=== PATIENT | female | born 1945 | race African-American/Black ===

== ENCOUNTER 2017-03-10 15:27 | Emergency (ER) | payer OTHER ==
[~2017-03-10] VITALS: Ht 152.4 cm; Wt 68.0 kg
[2017-03-10] MEDS ORDERED: SOD CHLORIDE 0.9% 1,000 ML IV STA ×2 (15:30→16:23)
[2017-03-10 15:31] VITALS: Ht 152.4 cm; Wt 68.0 kg
[2017-03-10 15:43] LABS: ADD SCAN DIFF NO
[2017-03-10 15:44] LABS: ABNORMAL IP MESSAGE 1; HEMATOCRIT 48.4 % (37.0-47.0); HEMOGLOBIN 16.4 g/dl (12.0-16.0); MEAN CORPUSCULAR HGB CONC 33.9 g/dl (32.0-37.0); MEAN CORPUSCULAR VOLUME 88.6 fl (82.0-101.0); MEAN PLATELET VOLUME 9.7 fl (7.4-10.4); PLATELET COUNT 266 10^3/UL (140-415); RED BLOOD COUNT 5.46 10^6/ul (4.20-5.40); RED CELL DISTRIBUTION WIDTH 13.1 % (11.5-14.5); WHITE BLOOD COUNT 12.6 10^3/ul (4.8-10.8)
[2017-03-10 15:59] LABS: INR 0.95; PROTIME 12.7 Sec (12.2-14.2)
[2017-03-10 16:00] LABS: PARTIAL THROMBOPLASTIN TIME 27.8 Sec (25.0-35.0)
[2017-03-10 16:01] LABS: LYMPHOCYTES # 0.3 10^3/ul (0.8-2.9); MONOCYTE # 0.6 10^3/ul (0.3-0.9); NEUTROPHIL # 11.7 10^3/ul (1.6-7.5)
[2017-03-10 16:02] LABS: ALBUMIN 5.2 g/dl (3.3-4.9); ALBUMIN/GLOBULIN RATIO 1.62; BILIRUBIN,INDIRECT 0.2 mg/dl (0-1.1); BILIRUBIN,TOTAL 0.2 mg/dl (0.2-1.3); CALCIUM 10.6 mg/dl (8.4-10.2); CREATININE 1.82 mg/dl (0.44-1.00); POTASSIUM 4.1 mmol/L (3.5-5.1); TOTAL PROTEIN 8.4 g/dl (6.1-8.1)
[2017-03-10 16:12] LABS: TROPONIN-I 0.103 ng/ml (0.00-0.12)
--- NOTE | 2017-03-10 16:16 | RADRPT ---
PROCEDURE: Chest x-ray CLINICAL INDICATION: Abdominal pain TECHNIQUE: Chest single view COMPARISON: None FINDINGS: There is mild cardiomegaly and an sclerotic aortic calcification. The pulmonary vessels are normal in caliber. The lungs are clear. The costophrenic angles are sharp. The visualized bony thorax is unremarkable. IMPRESSION: No acute cardiopulmonary disease. Mild cardiomegaly and atherosclerotic aortic calcification RPTAT: HH .Rosalio Ji MD, MD Date Time Electronically viewed and signed by .Rosalio Ji MD, MD on 03/10/2017 16:16 .W/
--- NOTE | 2017-03-10 16:36 | RADRPT ---
PROCEDURE: XR Hip. CLINICAL INDICATION: Left hip pain. TECHNIQUE: AP and frog-leg lateral views of the left hip were obtained. COMPARISON: None FINDINGS: No acute fracture or dislocations are seen. The osseous structures are well mineralized. The soft tissue structures are intact. IMPRESSION: Unremarkable left hip series. RPTAT: HPNM Physician Taina Date Time Electronically viewed and signed by Mil Sanchez Physician on 03/10/2017 16:36 /
[2017-03-10] MEDS ORDERED: LOSA25TA5 PO (16:49)
[2017-03-10] MEDS ORDERED: ERGO500037 PO (16:49)
[2017-03-10] MEDS ORDERED: RISP4TAB2 PO (16:50)
[2017-03-10] MEDS ORDERED: TEMA30CA PO (16:50)
[2017-03-10] MEDS ORDERED: ALEN70TA30 PO (16:50)
[2017-03-10] MEDS ORDERED: AMLO5TAB4 PO (16:52)
[2017-03-10] MEDS ORDERED: CHLO25TA14 PO (16:52)
[2017-03-10] MEDS ORDERED: ATEN-51 PO (16:53)
[2017-03-10] MEDS ORDERED: ATOR10TA65 PO (16:54)
[2017-03-10 17:29] LABS: ADD UMIC YES; UR ASCORBIC ACID NEGATIVE (NEGATIVE); UR BILIRUBIN (Dip) NEGATIVE (NEGATIVE); UR BLOOD (Dip) 3+ mg/dL (NEGATIVE); UR CLARITY CLOUDY (CLEAR); UR COLOR YELLOW (YELLOW); UR GLUCOSE (Dip) 2+ mg/dL (NEGATIVE); UR KETONES (Dip) TRACE mg/dL (NEGATIVE); UR LEUKOCYTE ESTERASE (Dip) 2+ Leu/ul (NEGATIVE); UR NITRITE (Dip) NEGATIVE (NEGATIVE); UR RBC 2 /HPF (0-5); UR SPECIFIC GRAVITY (Dip) 1.014 (1.003-1.030); UR SQUAMOUS EPITHELIAL CELL FEW /HPF (FEW); UR TOTAL PROTEIN (Dip) 1+ mg/dl (NEGATIVE); UR UROBILINOGEN (Dip) NEGATIVE (NEGATIVE)
--- NOTE | 2017-03-10 17:30 | RADRPT ---
PROCEDURE: CT Brain without contrast. CLINICAL INDICATION: Syncope complaint of left leg pain status post fall yesterday TECHNIQUE: A CT of the brain was performed on a GE [employer] 64-slice CT scanner utilizing axial imaging from the skull base through the vertex without IV contrast. Multiplanar reformatted images were made. Images were reviewed on a PACS workstation. The CTDIvol is 41.88 mGy and the DLP is 720 .23 mGycm. One of the following 3 dose reduction techniques were used: Automated exposure control; adjustment of the mA and/or kV according to patient size; or use of iterative reconstruction technique. COMPARISON: None FINDINGS: There is no intracranial hemorrhage, mass effect, or midline shift. No extra-axial fluid collection is seen. The ventricles and sulci are age appropriate. Mild diffuse volume loss is present. Confl uent decreased attenuation is present in the bilateral subcortical white matter, bilateral centrum s emiovale, and bilateral periventricular white matter compatible with mild chronic microvascular isch emic disease. Wedge-shaped decreased attenuation is present in the right frontal lobe extending to the right periventricular frontal white matter and involving the right basal ganglia compatible with a chronic right frontal lobe infarcts. Physiologic calcifications are noted of the bilateral basal ganglia. Moderate vascular calcifications are present of the bilateral intracranial internal carot id arteries and the tubal arteries. The visualized scalp and calvarium are normal. The bilateral orbits are normal. The bilateral para nasal sinuses, mastoid air cells, and middle ear cavities are clear. IMPRESSION: 1. No evidence of acute intracranial hemorrhage, infarcts, or acute intracranial pathology. 2. 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 3. Mild chronic microvascular ischemic disease and mild diffuse volume loss. 4. Moderate atherosclerotic vascular disease RPTAT: HDC .Gladys Perze MD, MD Date Time Electronically viewed and signed by .Gladys Perez MD, MD on 03/10/2017 17:30 .C/
[2017-03-10] MEDS ORDERED: CEFTRIAXONE 1 GM/50 ML (PMX) 50 ML IVPB ONE (18:00)
--- NOTE | 2017-03-10 19:13 | ERA ---
ER Documentation Chief Complaint Date/Time DATE: 03/10/17 TIME: 19:08 Chief Complaint syncope while in chair, c/o left leg pain s/p fall yesterday HPI This is a 71-year-old female who presents to the emergency room for evaluation after a possible syncopal episode at her house. The patient was complaining of left-sided leg pain and states that she did fall yesterday. The patient was able to give a detailed history secondary to her clinical condition, however EMS states that when they arrived in the patient's apartment was no air conditioning, and it was hot. He states that the patient was sitting in a chair and she had no loss of consciousness for EMS. ROS All systems reviewed and are negative except as per history of present illness. Medications Home Meds Reported Medications Atorvastatin Calcium (Atorvastatin Calcium) 10 Mg Tablet, 5 MG PO DAILY, #30 TAB 03/10/17 Atenolol* (Atenolol*) 25 Mg Tablet, 25 MG PO DAILY, #30 TAB 03/10/17 Amlodipine Besylate* (Norvasc*) 5 Mg Tablet, 5 MG PO DAILY, TAB 03/10/17 Chlorpromazine Hcl* (Chlorpromazine Hcl*) 25 Mg Tablet, 25 MG PO QHS, TAB TAKE 2-4 TABLETS QHS 03/10/17 Alendronate Sodium* (Fosamax*) 70 Mg Tablet, 70 MG PO Q7D, #4 TAB 03/10/17 Temazepam* (Temazepam*) 30 Mg Capsule, 30 MG PO HS Y for INSOMNIA, CAP 03/10/17 Risperidone* (Risperidone*) 4 Mg Tablet, 8 MG PO QHS, TAB 03/10/17 Losartan Potassium* (Losartan Potassium*) 25 Mg Tablet, 25 MG PO DAILY, TAB 03/10/17 Ergocalciferol (Vitamin D2) (VITAMIN D2) 50,000 Unit Capsule, 62273 UNIT PO MONTHLY, CAP 03/10/17 Allergies Allergies: Coded Allergies: No Known Allergy (Unverified , 03/10/17) PMhx/Soc Medical and Surgical Hx: pt denies Medical Hx History of Surgery: Yes (Ceserian section) Anesthesia Reaction: No Hx Neurological Disorder: No Hx Respiratory Disorders: No Hx Cardiac Disorders: Yes (HTN) Hx Psychiatric Problems: Yes (sleep[ing problems and states has "mental health " probs) Hx Miscellaneous Medical Probl: No Hx Alcohol Use: No Hx Tobacco Use: No Smoking Status: Never smoker Physical Exam Vitals Vital Signs Date Time Temp Pulse Resp B/P Pulse Ox O2 Delivery O2 Flow Rate FiO2 03/10/17 18:12 98.3 95 18 162/100 100 Nasal Cannula 2.0 03/10/17 16:00 94 20 126/92 100 Nasal Cannula 2.0 03/10/17 15:31 98.1 91 20 91/58 98 Physical Exam INITIAL VITAL SIGNS: Reviewed by me GENERAL: The patient is a frail-appearing elderly female HEENT: Severely dry mucous membranes, pupils equal, round, and reactive to light. EOMI. There is no scleral icterus. NECK: C-spine is soft and supple, there is no meningismus. There is no cervical lymphadenopathy. LUNGS: Clear to auscultation bilaterally. There are no rales, wheezes or rhonchi. HEART: Regular rate and rhythm, no murmurs, clicks, rubs or gallops. ABDOMEN: Soft, non-tender, non-distended. There are bowel sounds in all four quadrants. No rebound or guarding. EXTREMITIES: There is no peripheral cyanosis or edema. No focal swelling or erythema. NEUROLOGICAL: The patient moves all four extremities with 5/5 strength. Cranial nerves II - XII are intact. Normal gait. Alert and oriented SKIN: Superficial abrasion noted over the medial aspect of the left knee, there is no apparent rash or petechiae. HEME/LYMPHATIC: There is no evidence of excessive bruising or lymphedema. PSYCHIATRIC: The patient does not appear anxious or depressed. Result Diagram: 03/10/17 1530 03/10/17 1530 Results 24 hrs Laboratory Tests Test 03/10/17 15:30 03/10/17 15:32 03/10/17 17:10 03/10/17 18:00 White Blood Count 12.610^3/ul Red Blood Count 5.4610^6/ul Hemoglobin 16.4g/dl Hematocrit 48.4% Mean Corpuscular Volume 88.6fl Mean Corpuscular Hemoglobin 30.0pg Mean Corpuscular Hemoglobin Concent 33.9g/dl Red Cell Distribution Width 13.1% Platelet Count 92378^3/UL Mean Platelet Volume 9.7fl Neutrophils % 93.0% Lymphocytes % 2.0% Monocytes % 5.0% Neutrophils # 11.710^3/ul Lymphocytes # 0.310^3/ul Monocytes # 0.610^3/ul Prothrombin Time 12.7Sec Prothrombin Time Ratio 1.0 INR International Normalized Ratio 0.95 Activated Partial Thromboplast Time 27.8Sec Sodium Level 146mmol/L Potassium Level 4.1mmol/L Chloride Level 109mmol/L Carbon Dioxide Level 19mmol/L Anion Gap 22 Blood Urea Nitrogen 16mg/dl Creatinine 1.82mg/dl Glucose Level 140mg/dl Lactic Acid Level 7.2mmol/L 3.6mmol/L Calcium Level 10.6mg/dl Total Bilirubin 0.2mg/dl Direct Bilirubin 0.00mg/dl Indirect Bilirubin 0.2mg/dl Aspartate Amino Transf (AST/SGOT) 96IU/L Alanine Aminotransferase (ALT/SGPT) 43IU/L Alkaline Phosphatase 144IU/L Creatine Kinase 8842IU/L Troponin I 0.103ng/ml Total Protein 8.4g/dl Albumin 5.2g/dl Globulin 3.20g/dl Albumin/Globulin Ratio 1.62 Lipase 192U/L Bedside Glucose 126mg/dL Urine Color YELLOW Urine Clarity CLOUDY Urine pH 5.0 Urine Specific [place] 1.014 Urine Ketones TRACEmg/dL Urine Nitrite NEGATIVEmg/dL Urine Bilirubin NEGATIVEmg/dL Urine Urobilinogen NEGATIVEmg/dL Urine Leukocyte Esterase 2+Feliz/ul Urine Microscopic RBC 2/HPF Urine Microscopic WBC 5/HPF Urine Squamous Epithelial Cells FEW/HPF Urine Hemoglobin 3+mg/dL Urine Glucose 2+mg/dL Urine Total Protein 1+mg/dl Current Medications Medications (Trade) Dose Ordered Sig/Amari Route PRN Reason Start Time Stop Time Status Last Admin Dose Admin Sodium Chloride 1,000 ml @ 1,000 mls/hr Q1H STAT IV 03/10/17 15:30 03/10/17 16:29 DC 03/10/17 15:37 Sodium Chloride 1,000 ml @ 1,000 mls/hr Q1H STAT IV 03/10/17 16:23 03/10/17 17:22 DC 03/10/17 17:07 Ceftriaxone Sodium (Rocephin) 50 ml @ 100 mls/hr ONCE ONCE IVPB 03/10/17 18:00 03/10/17 18:29 DC 03/10/17 19:05 Procedures/MDM EKG: Rate/Rhythm: [Normal Sinus Rhythm] QRS, ST, T-waves: [No changes consistent w/ acute ischemia] Impression: [No evidence of ischemia or arrhythmia] X-ray Hip 2V Interpreted by me: Bones: No fracture Joints: No dislocation Foreign body: None Chest X-ray 1V Interpreted by me: Soft Tissue: No acute abnormalities Bones: No acute abnormalities Mediastinum/Cardiac Silhouette/Lungs: [No acute abnormalities] CT brain without: 1. No evidence of acute intracranial hemorrhage, infarcts, or acute intracranial pathology. 2. 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 3. Mild chronic microvascular ischemic disease and mild diffuse volume loss. 4. Moderate atherosclerotic vascular disease This 71-year-old female presents to the ER for evaluation of generalized weakness, possible syncopal episode. The patient was taken from her home which was found to be extremely hot according to EMS. When I evaluated this patient she was alert and oriented to person and place. The patient was found to have severely dry mucous membranes. Her original blood pressure was 93 over 50 1. We did obtain lab work and I gave this patient intravenous fluids. As this patient was being infused intravenous fluids the patient states she started to feel better. Lab work does reveal hemoconcentration, and CK level greater than 8800. This patient's original lactic acid was 7.2. A repeat lactic acid 2 hours after IV fluids was 3.6. She was found to have a urinary tract infection was given 1 g Rocephin in the emergency room. Given this patient's diagnosis of rhabdomyolysis, moderate dehydration and her age the patient will need to be admitted. She is a [facility] patient and I have spoken to Dr. Luong who agrees to accept the patient. Case #[id number] Critical Care: Excluding all billable procedures Time: 33 minutes Treatments/Evaluations: Close monitoring and treatment of unstable vital signs, cardiorespiratory, and neurologic status, while maintaining tight balance of fluid, respiratory, and cardiac interventions. Departure Diagnosis: Primary Impression: Severe dehydration Additional Impressions: Rhabdomyolysis Renal insufficiency Condition: Stable DAWOOD ARANDA DO Mar 10, 2017 19:12
[2017-03-10 19:42] VITALS: BP 173/105; PULSE 96; RESP 24; TEMP 98.4
== END 2017-03-10 20:38 | disposition short-term general hospital (02) ==
LOC: E/R 15:27
DX: E86.0 Dehydration (principal); M62.82 Rhabdomyolysis; N28.9 Disorder of kidney and ureter, unspecified; I10 Essential (primary) hypertension
CPT/HCPCS: 36415; 70450; 71010; 73510; 80053; 81001; 82550; 82962; 83605; 83690; 84484; 85025; 85610; 85730; 87040; 87086; 93005; 96361; 96365; 99291; J0696; J7030

== ENCOUNTER 2017-06-07 14:20 | Inpatient (IN) | END 2017-06-10 21:00 | disposition short-term general hospital (02) | DRG 281 | DX: I21.4 Non-ST elevation (NSTEMI) myocardial infarction (principal); N17.9 Acute kidney failure, unspecified; F20.0 Paranoid schizophrenia; R73.03 Prediabetes; I10 Essential (primary) hypertension; I48.0 Paroxysmal atrial fibrillation; I08.0 Rheumatic disorders of both mitral and aortic valves ==